=== PATIENT | male | born 2000 | race African-American/Black ===

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

== ENCOUNTER 2021-02-18 16:12 | Emergency (ER) | payer OTHER, SELFPAY ==
[2021-02-18 17:06] VITALS: BP 119/54; PULSE 93; RESP 18; TEMP 37; O2SAT 100; BMI 27.6
--- NOTE | 2021-02-18 17:39 | ED.SKABFB ---
HPI - Skin/Abscess/Foreign Bdy General Chief complaint: Skin/Abscess/Foreign Body Stated complaint: rash Time Seen by Provider: 02/18/21 17:31 Source: patient Mode of arrival: ambulatory Limitations: language barrier History of Present Illness HPI narrative: 20 y/o male presenting with a painful, itchy, red, raised rash on his bilateral arms and left lower leg that started yesterday after he was picking up leaves and doing yard work. It started on his bilateral forearms and extended to his upper arms, hands, forehead, feet and left calf. It is extremely itchy and painful. He has no SOB or wheezing. No facial swelling or airway involvement. No known history of allergies in the past. MD complaint: rash Onset (ago): day(s) (1) Tetanus up to date: yes Location: generalized Severity: moderate Severity scale (1-10): 7 Quality: burning and pruritic Pain Consistency: constant Relieving factors: cold therapy Exacerbating factors: palpation Context: other (outside picking up leaves) Associated symptoms: denies other symptoms Treatments prior to arrival: none Related Data Previous Rx's Medication Instructions Recorded diphenhydramine HCl [Benadryl] 50 mg PO Q4-6H PRN #14 cap 02/18/21 prednisone 10 mg PO PER PKG DIR #48 ea 02/18/21 Allergies Allergy/AdvReac Type Severity Reaction Status Date / Time No Known Allergies Allergy Verified 02/18/21 17:05 [No Known Allergies*] Review of Systems Review of Systems: Constitutional: No Fever, No Chills ENT/Mouth: No sore throat, No Rhinorrhea, No Swallowing Difficulty Eyes: No Eye Pain, No Swelling, No Redness Cardiovascular: No Chest Pain, No SOB Respiratory: No Cough, No Sputum, No Wheezing, No dyspnea Gastrointestinal: No Nausea, No Vomiting, No Diarrhea, No abdominal Pain Musculoskeletal: No joint pain, No Myalgias Skin: No Skin Lesions, + rash Neuro: No Dizziness, No Headache Psych: + Anxiety/Panic Heme/Lymph: No Bruising, No Lymphadenopathy PMFSH Past Medical History Attestation statement: The following information was validated with the patient. Social History Social History Advance Directives: No Advance Directives Information Provided: Yes Physical Exam Vital Signs: Vital Signs: Last Vital Signs Temp 98.6 F 02/18/21 17:06 Pulse 93 02/18/21 17:06 Resp 18 02/18/21 17:06 BP 119/54 L 02/18/21 17:06 Pulse Ox 100 02/18/21 17:06 Body Mass Index 27.6 Appearance: Alert. Oriented X3. No acute distress. HEENT: normal inspection. lips and mouth appear normal. normal voice CVS: Normal heart rate and rhythm. Pulses normal. Respiratory: No respiratory distress. Lung sounds are clear, no wheezing or stridor Skin: Skin warm and dry. Normal skin color. Normal skin turgor. No rashes. Extremities: urticaial rash to bilateral arms, left proximal posterior calf, top of his feet, forehead and dorsum of hands. warm to touch. Neuro: Oriented X 3. No motor deficit. No sensory deficit. Course Course Course Narrative: 20 y/o male presenting with itchy urticalial rash after doing yard work, suspect poison yun dermatitis. Will treat with steroid taper and Benadryl. No evidence of angioedema. Stable for d/c home with prednisone taper, paper counseled on course and management. Discharge Plan Discharge Clinical Impression: Urticaria Patient Disposition: Home, Self-Care Instructions: Urticaria (ED), Poison Yun (ED) Additional Instructions: Start taking prednisone taper tomorrow, you were given your 1st dose in the ER. Complete the entire course. Take Benadryl 50 mg every 4-6 hours as needed for itching. Use cool compresses to the area for symptomatic relief. Do your best not to itch the rash, that can make it spread. If you develop shortness of breath, wheezing, difficulty breathing, throat swelling or any other concerning symptom come back to the ER for further evaluation. Prescriptions: New prednisone 10 mg tablets,dose pack 10 mg PO PER PKG DIR Qty: 48 RF: 0 diphenhydramine HCl [Benadryl] 25 mg capsule 50 mg PO Q4-6H PRN (Reason: itching) Qty: 14 RF: 0 Stand Alone Forms: Work/School Release
[2021-02-18] MEDS: diphenhydrAMINE HCL 25 MG TABLET 50 MG PO (17:43)
[2021-02-18] MEDS: predniSONE 20 MG TABLET 60 MG PO (17:44)
== END 2021-02-18 18:16 | disposition home or self-care (01) ==
LOC: HO.ED 17:46
PROVIDERS: Emergency Provider Emergency Medicine; PCP Internal Medicine
DX: L50.9 Urticaria, unspecified (principal)
CPT/HCPCS: 99283; Q0163

== ENCOUNTER 2021-02-19 17:47 | Emergency (ER) | payer OTHER, SELFPAY ==
[2021-02-19 18:32] VITALS: BP 117/55; PULSE 76; RESP 18; TEMP 36.7; O2SAT 100; BMI 27.6
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
== END 2021-02-19 19:56 | disposition left against medical advice (07) ==
PROVIDERS: Emergency Provider Emergency Medicine
DX: L50.9 Urticaria, unspecified (principal)
CPT/HCPCS: 99281; 99282

== ENCOUNTER 2021-05-20 23:25 | Emergency (ER) | payer OTHER, SELFPAY ==
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
[2021-05-20 23:38] VITALS: BP 114/66; BP 140/70; PULSE 70; PULSE 97; RESP 16; TEMP 36.7; O2SAT 100; BMI 27.1
[2021-05-21] VITALS: BP 127/90; PULSE 75; RESP 16; O2SAT 100
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
--- NOTE | 2021-05-21 02:08 | PC.NURSE ---
pt states he has left sided hip pain on standing and told this to imaging. this will be relayed onto the provider.
[2021-05-21] MEDS: Ketorolac Tromethamine 60 MG/2 ML VIAL IM (02:50)
== END 2021-05-21 03:01 | disposition home or self-care (01) ==
PROVIDERS: Emergency Provider Emergency Medicine
DX: S16.1XXA Strain of muscle, fascia and tendon at neck level, initial encounter (principal); S20.213A Contusion of bilateral front wall of thorax, initial encounter; M54.2 Cervicalgia; R07.81 Pleurodynia; V47.5XXA Car driver injured in collision with fixed or stationary object in traffic accident, initial encounter; Y93.9 Activity, unspecified; Y92.410 Unspecified street and highway as the place of occurrence of the external cause; Y99.9 Unspecified external cause status; Z79.899 Other long term (current) drug therapy
CPT/HCPCS: 71046; 71110; 72125; 96372; 99284; J1885

== ENCOUNTER 2025-04-29 17:59 | Emergency (ER) | payer OTHER, SELFPAY ==
[2025-04-29 18:01] VITALS: BP 123/63; PULSE 83; RESP 18; TEMP 36.3; O2SAT 100; BMI 32.3
--- NOTE | 2025-04-29 18:01 | ED_ITS ---
HPI - General Adult General Chief complaint: Medical Clearance Stated complaint: Dental pain Time Seen by Provider: 04/29/25 18:02 Source: patient Mode of arrival: ambulatory Limitations: no limitations History of Present Illness ED Provider: KATHY BENITEZ PA-C HPI narrative: 24 year old male with pmhx significant for sick cell anemia presents to the ED today requesting blood work. Patient reports dental pain x months. He has followed up with a dentist for this and needs excision of the tooth. His dentist has requested he have labs drawn (PTT, PT, and INR) prior to this procedure. He is not on AC. He has made an appointment with his PCP to have this lab work drawn however his PCP has rescheduled his visit 4 times and he has been unable to get this blood work done. He presents to the ED requesting his labs be drawn so that he can share these with his dentist. Reports 4/10 dental pain, unchanged. No fever, chills. No other complaints. Related Data Previous Rx's ?Medication ?Instructions ?Recorded diphenhydramine HCl 25 mg capsule 50 mg (2 x 25 mg) PO Q4-6H PRN 02/18/21 (Benadryl) itching #14 caps prednisone 10 mg tablets in a dose 10 mg PO PER PKG DI R #48 ea 02/18/21 pack naproxen 500 mg tablet (Naprosyn) 500 mg PO BID #20 ta bs 05/21/21 Allergies Allergy/AdvReac Type Severity Reaction Status Date / Time No Known Allergies (No Known Allergy Verified 04/29/25 18:03 Allergies*) Review of Systems Review of Systems: Yes all other systems are reviewed and are negative PMFSH Past Medical History Attestation statement: The following information was validated with the patient. Source: old records reviewed and nursing notes reviewed Social History Social History Alcohol intake: never Patient Tobacco Use Status: Never used Tobacco Advance Directives: No Advance Directives Information Provided: No Physical Exam ED Vital Signs: Vital Signs - 24 hr 04/29/25 18:01 Temperature 97.3 F Pulse Rate 83 Respiratory Rate 18 Blood Pressure 123/63 Pulse Oximetry 100 Oxygen Delivery Method Room Air BMI result Body Mass Index 32.3 vital signs stable, afebrile General: Well appearing, in no acute distress. Skin: Warm, dry, intact. No rashes or lesions. Head: Normocephalic, atraumatic. EENT: Hearing is intact b/l. Conjunctiva clear. PERRLA. EOM intact. Moist mucous membranes.? Neck: Supple without LAD Cardiac: Chest wall symmetric. RRR Lungs: Normal respiratory effort without accessory muscle use. CTA bilaterally Neuro: AOx3. Normal speech. Ambulating with steady gait Course Course Course Narrative: Coags WNL Results provided to patient. Patient has no concerns at present. He is stable for discharge. Medical Decision Making Medical Decision Making [facility] Narrative: 24 year old male with pmhx significant for sick cell anemia presents to the ED today requesting blood work. vital signs stable. well appearing and in NAD. Plan for coags and discharge. Differential Diagnosis Differential Diagnoses: The differential diagnosis associated with the presentation includes as above. Admission/Observation not indicated. Lab Data [facility] Lab Attestation statement: I reviewed the patient's lab results. as above. Labs: Lab Results 04/29/25 Range/Units 18:21 PT 11.8 (10.9-12.4) SEC INR 1.0 (0.9-1.1) APTT 32.2 (26.7-34.1) SEC Social Determinants Patient?s care significantly limited by Social Determinants of Health including: Other Social Determinant of Health Critical Care Time Critical Care Time Critical Care Time: No Discharge Plan Discharge Clinical Impression: Pre-procedure lab exam Patient Disposition: Home, Self-Care Additional Instructions: You presented to the ED today requesting lab work for dental procedure. I have provided you with your lab results. Follow up with your dentist as planned. Prescriptions: No Action prednisone 10 mg tablets,dose pack 10 mg PO PER PKG DIR Qty: 48 0RF Rx Instructions: Take 5 tabs x3 days, then 4 tabs x3 days, then 3 tabs x3 days, then 2 tabs x3 days, then 1 tab x3 days diphenhydramine HCl [Benadryl] 25 mg capsule 50 mg PO Q4-6H PRN (Reason: itching) Qty: 14 0RF naproxen [Naprosyn] 500 mg tablet 500 mg PO BID Qty: 20 0RF Discharge Date/Time: 04/29/25 19:15 Print Language: Albanian
[2025-04-29 18:59] LABS: INTERNATIONAL NORM RATIO 1.0 (0.9-1.1); Partial Thromboplastin Time 32.2 SEC (26.7-34.1); Prothrombin Time 11.8 SEC (10.9-12.4)
== END 2025-04-29 19:15 | disposition home or self-care (01) ==
PROVIDERS: Physician Assistant Medical; Emergency Provider Emergency Medicine
DX: K08.89 Other specified disorders of teeth and supporting structures (principal); D57.1 Sickle-cell disease without crisis
CPT/HCPCS: 36415; 85610; 85730; 99281; 99283

== ENCOUNTER 2025-06-03 11:08 | Outpatient (REF) | payer OTHER, SELFPAY ==
[2025-06-03 13:10] LABS: MANUAL DIFF FLAG NO
[2025-06-03 13:12] LABS: Hematocrit 41.3 % (42.0-52.0); Hemoglobin 13.3 g/dl (14.0-18.0); Imm Gran Abs Auto 0.01 X10*3/uL (0.00-0.03); Imm Gran Pct Auto 0.1 % (0.0-0.4); Lymphocytes Absolute Auto 3.0 X10*3/uL (1.2-4.9); Mean Corpuscular HGB Conc 32.2 g/dl (31.0-36.0); Mean Corpuscular Hemoglobin 22.1 pg (27.0-33.0); Mean Corpuscular Volume 68.7 fL (80.0-98.0); NRBC Abs Auto 0.000 X10*3/uL (0.0-0.012); NRBC Pct Auto 0.0 /100WBC (0.0-0.2); Platelet Count 308 X10*3/uL (160-400); Red Blood Count 6.01 X10*6/uL (4.60-5.80); White Blood Count 7.8 X10*3/uL (4.8-10.8)
[2025-06-03 13:38] LABS: Alanine Aminotransferase 65 U/L (0-40); Albumin Level 4.7 g/dL (3.5-5.0); Anion Gap 12 (12-20); Aspartate Amino Transferase 60 U/L (5-37); Blood Urea Nitrogen 13 mg/dL (9-16); Calcium 9.3 mg/dL (8.4-10.2); Carbon Dioxide 27 mmol/L (22-29); Chloride 105 mmol/L (96-108); Cholesterol 211 mg/dL (<200); Estimated Glomerular Filt Rate > 60; HDL Cholesterol 36 mg/dL (>40); Potassium 3.7 mmol/L (3.3-5.1); Sodium 140 mmol/L (135-145); Total Protein 8.2 g/dL (6.5-8.0); Triglycerides 329 mg/dL (<150)
[2025-06-03 13:42] LABS: Alkaline Phosphatase 60 U/L (39-117)
[2025-06-03 13:56] LABS: Thyroid Stimulating Hormone 2.41 uIU/mL (0.32-4.0)
== END 2025-06-03 11:09 | disposition home or self-care (01) ==
LOC: HO.10HDL 11:08
PROVIDERS: Visit Provider Internal Medicine
DX: Z00.00 Encounter for general adult medical examination without abnormal findings (principal); D57.3 Sickle-cell trait; E66.9 Obesity, unspecified; E78.5 Hyperlipidemia, unspecified; M26.621 Arthralgia of right temporomandibular joint
CPT/HCPCS: 36415; 80053; 80061; 84443; 85025